=== PATIENT | female | born 1970 | race Caucasian/White ===

== ENCOUNTER 2020-10-14 07:29 | Emergency (ER) | payer OTHER ==
[2020-10-14] MEDS ORDERED: PREDNISONE 20MG20 MG PO (08:19)
[2020-10-14] MEDS ORDERED: VALTREX500 MG PO (08:21)
== END 2020-10-14 08:44 | disposition home or self-care (01) ==
LOC: FER 07:29
DX: B02.9 Zoster without complications (principal)
CPT/HCPCS: 99282; J7512